=== PATIENT | female | born 1940 | race Caucasian/White ===

== ENCOUNTER 2016-12-30 03:02 | Emergency (ER) | payer OTHER ==
[~2016-12-30] VITALS: Ht 160 cm; Wt 72.6 kg
[2016-12-30 05:15] VITALS: BP 188/104
== END 2016-12-30 05:15 | disposition home or self-care (01) ==
LOC: ED 03:02
DX: S01.112A Laceration without foreign body of left eyelid and periocular area, initial encounter (principal); G20 Parkinson's disease; Z79.899 Other long term (current) drug therapy; W06.XXXA Fall from bed, initial encounter; Y93.89 Activity, other specified; Y99.8 Other external cause status; Y92.89 Other specified places as the place of occurrence of the external cause